=== PATIENT | male | born 1995 | race Caucasian/White ===

== ENCOUNTER 2017-05-26 11:11 | Emergency (ER) | payer SELFPAY ==
[2017-05-26 11:17] VITALS: BP 137/80; BMI 24.4
[2017-05-26] MEDS ORDERED: DECADRON INJ IM ONE (13:14)
--- NOTE | 2017-05-26 13:14 | DR.GENAD ---
HPI - PCP Primary Care Physician: donte - HPI Comment HPI Comment: NOTED PAIN AFTER SEIZURE.HAVE HISTORY SEIZURES AND TAKE KEPPRA. SOME BREAK THROUGH EVEN WITH MEDS. PATIENT HAVE HAD DISLOCATION IN THE SAME SHOULDER PREVIOUSLY. - Complaint/Symptoms Chief Complaint Doctors Comments: LEFT SHOULDER PAIN SINCE LAST NIGHT. Chief Complaint:: "pt has a history of siezures he had one lastnight and hurt his left shoulder after falling" - Nurses notes reviewed Nurses Notes Review: Yes - Source History Provided: Patient - Mode of Arrival Mode of Arrival: Ambulatory - Timing Onset of Chief Complaint: 05/25/17 Came on: Suddenly - Duration Duration: Constant Duration: Days - Severity Severity: Moderate PMH - PMH Past Medical History: Yes Past Medical History: Seizures Past Surgical History: Yes Past Surgical History Comment: left leg - Family History History of Family Medical Conditions: Yes Family Medical History: Hypertension - Social History Does patient currently use any type of tobacco product: Yes Have you used tobacco products in the last 12 months: Yes Type of Tobacco Use: Cigarettes How many years tobacco product used: 8 Does any household member use tobacco: No Alcohol Use: Rarely Do you use any recreational Drugs:: No Lives With: Family Lives Where: Home - infectious screening In the last 2 months have you had wt loss of >10#?: NO Have you had fever, night sweats or hemotysis?: No Have you traveled outside the country in the last 6 months?: No Isolation: Standard ROS - Review of Systems Constitutional: No Symptoms Reported Eyes: No Symptoms Reported ENTM: No Symptoms Reported Respiratoy: No Symptoms Reported Cardiovascular: No Symptoms Reported Gastrointestinal/Abdominal: No Symptoms Reported Genitourinary: No Symptoms Reported Neurological: No Symptoms Reported Musculoskeletal: Left, Shoulder Integumentary: No Symptoms Reported Hematologic/Lymphatic: No Symptoms Reported Endocrine: No Symptoms Reported All Other Systems: Reviewed and Negative PE - Vital Signs Vitals: Temperature 98.9 F Pulse Rate 105 Respiratory Rate 18 Blood Pressure 137/80 O2 Sat by Pulse Oximetry 100 - General Limitations: No Limitations General Appearance: Alert - Head Head Exam: Normal Inspection - Eyes Eye exam: Normal Appearance - ENT ENT Exam: Normal External Ear Exam External Ear Exam: Normal External Inspection TM/Canal Exam: Bilateral Normal Nose Exam: Normal Nose Exam Mouth Exam: Normal Inspection Throat Exam: Normal Inspection - Neck Neck Exam: Trachea Midline - Chest Chest Inspection: Symmetric Chest Wall Rise - Respiratory Respiratory Exam: Normal Lung Sounds Bilat Respiratory Exam: Bilateral Clear to Auscultation - Cardiovascular Cardiovascular Exam: Regular Rate, Normal Rhythm, Normal Heart Sounds - Abdominal Exam Abdominal Exam: Normal Bowel Sounds, Soft. negative: Tenderness - Extremities Extremities Exam: Tenderness (TENDERNESS LEFT SHOULDER.). negative: Full ROM ( ROM DECREASE.) - Back Back Exam: Normal Inspection - Neurologic Neurological Exam: Alert, Oriented X3 - Psychiatric Psychiatric Exam: Normal Affect, Normal Mood - Skin Skin Exam: Normal Color MDM - Differential Diagnosis Differential Diagnosis: LEFT SHOULDER SPRAIN, FRACTURE, CONTUSION. Course - Treatment Treatment: SEE ORDERS. - Education/Counseling Education/Counseling: Patient, Education Educated On: Diagnosis, Needs for Follow Up ROR - XRAY XRAY Findings: REPORTS DISCUSS WITH PATIENT. - Diagnosis Discharge Problem: Sprain of left shoulder - Discharge Plan Disposition: 01 HOME, SELF-CARE Condition: Stable Prescriptions: Cyclobenzaprine HCl [FLEXERIL 10 MG *] 10 mg PO TID PRN #15 tab PRN Reason: Methylprednisolone Dosepak 4Mg [MEDROL DOSEPAK (4 mg tab x 21)] 1 nik PO ONCE # 1 nik - Follow ups/Referrals Follow ups/Referrals: [facility],None [Primary Care Provider] - 3 days SHAMEKA KISER [STAFF PHYSICIAN] - 3 days - Instructions Instructions: Shoulder Sprain Additional Instructions: RETURN TO ED IF WORSE.
[2017-05-26] MEDS ORDERED: DECADRON INJ ONE (13:19)
--- NOTE | 2017-05-26 13:29 | RAD ---
Examination: Left shoulder, three views History: Seizure and fell Findings: There is no definite fracture identified. The humeral head demonstrates a nonacute flatteni ng deformity appear it may be in normal position although the available lateral view does not confirm this satisfactorily. The AC joint is normal. Impression: 1. Contour deformity of the humeral head is suggestive of Hill-Sachs lesion secondary to prior disloc ations. Correlate with history. 2. Apparent widening of the glenohumeral joint. Although this may not be acute, the possibility of so me degree of subluxation should be considered. CT may be helpful to evaluate this. Reported By:
--- NOTE | 2017-05-26 14:56 | CT ---
HISTORY: 21-year-old female status post seizure with fall with left shoulder pain. Study: [facility] [place]. Comparison: Radiographs of left shoulder this date. Technique: Multiple contiguous axial images of the left shoulder were obtained in soft tissue and bon e windows. Coronal and sagittal reformats are provided Findings: Chronic appearing bony Bankart fracture and Hill-Sachs deformities with a questionable acute bony Ban kart component with a large 2.8 x 2.8 x 3.0 cm fluid collection consistent with hemarthrosis/effusion . Remaining osseous structures are intact. Joint spaces remain congruent. Left hemithorax is clear. IMPRESSION: Chronic appearing bony Bankart and Hill-Sachs deformities with a suggestion of an acute bony Bankart component with a 2.8 x 2.8 x 3.0 cm hemarthrosis/effusion. Further evaluation with MR may be benefici al as clinically warranted. Reported By:
== END 2017-05-26 15:02 | disposition home or self-care (01) ==
LOC: ER 11:24
DX: S43.402A Unspecified sprain of left shoulder joint, initial encounter (principal); W19.XXXA Unspecified fall, initial encounter; Y92.9 Unspecified place or not applicable
CPT/HCPCS: 73030; 73200; 96372; 99282; J1100